=== PATIENT | male | born 1970 | race Hispanic/Latino ===

== ENCOUNTER → 2018-10-31 | Day surgery (SDC) | payer BC ==
[2018-10-28 15:30] LABS: BASOPHILS % 0.7 % (0.0-1.0); EOSINOPHILS # (AUTO) 0.1 (0.0-0.4); EOSINOPHILS % 1.3 % (0.0-6.0); HEMATOCRIT 43.2 % (38.2-49.6); HEMOGLOBIN 14.6 g/dL (14.0-18.0); LYMPHOCYTES # (AUTO) 2.6 (1.0-3.2); LYMPHOCYTES % 43.6 % (18.0-39.1); MEAN CORPUSCULAR HEMOGLOBIN 30.4 pg (28-32); MEAN CORPUSCULAR HGB CONC 33.8 g/dL (31-35); MONOCYTES # (AUTO) 0.5 (0.2-0.8); MONOCYTES % 8.4 % (4.4-11.3); NEUTROPHILS # (AUTO) 2.7 (2.1-6.9); NEUTROPHILS % 45.8 % (38.7-80.0); PLATELET COUNT 219 x10e3/uL (140-360); RED CELL DISTRIBUTION WIDTH 12.6 % (11.7-14.4)
[2018-10-28 15:47] LABS: BLOOD UREA NITROGEN 14 mg/dL (7-26); BUN/CREATININE RATIO 16 (6-25); CALCIUM 9.5 mg/dL (8.4-10.2); CARBON DIOXIDE 23 mmol/L (22-29); CHLORIDE 105 mmol/L (98-107); CREATININE, SERUM 0.86 mg/dL (0.72-1.25); EST GLOMERULAR FILTRATION RATE > 60 ML/MIN (60-); GLUCOSE 83 mg/dL (74-118); SODIUM 137 mmol/L (136-145)
[~2018-10-31] MED LIST: ACETAMINOPHEN 1000 MG/100 ML 100 ML IV ONE; ACETAMINOPHEN/CODEINE 300MG - 30MG TAB ONE; BUPIVACAINE 0.25%/EPI 30ML SDV INJ ONE; DEXAMETHASONE SOD PHOS INJ 4 MG/ML VIAL ONE; FENTANYL CITRATE/PF 100MCG/2 ML INJ ONE; FISH OIL 1,0001 EAC2; KETOROLAC TROMETHAMINE 30 MG/ML VIAL ONE; LIDOCAINE HCL (LTA) 4 ML SOLN ONE; LIDOCAINE HCL 2% LOCAL INJ 5 ML SDV VIAL INJ ONE; LISINOPRIL30 MG; MIDAZOLAM HCL 2 MG/2 ML VIAL ONE; ONDANSETRON HCL INJ 2MG/ML 2ML 2 MG/ML VIAL ONE; PRAVASTATIN SOD80 MG; PROPOFOL IV EMULSION 10 MG/ML 20 ML VIAL ONE; ROCURONIUM BROMIDE 10 MG/ML 5ML VIAL ONE; SEVOFLURANE INHAL SOLN 250 ML PEN BTL ONE; XYZAL5 MG; ZETIA10 MG PO
[2018-10-31 12:15] VITALS: BP 115/84
--- NOTE | 2018-10-31 12:38 | Operative Report ---
DATE OF PROCEDURE: 10/31/2018 SURGEON: Juan Lyons MD PREOPERATIVE DIAGNOSIS: Umbilical hernia. POSTOPERATIVE DIAGNOSIS: Umbilical hernia. PROCEDURE PERFORMED: Repair of umbilical hernia with omphalectomy, partial omentectomy, and placement of Ethicon Proceed ventral patch, small size. ANESTHESIA: General. ESTIMATED BLOOD LOSS: Minimal. DRAINS: None. COMPLICATIONS: None. INDICATION AND FINDINGS: A 48-year-old male, who has been complaining of increasing bulge and discomfort in the umbilical site for several months. INTERAOPERATIVE FINDINGS: The patient had an umbilical hernia with incarceration of omentum that was viable. The Ultrapro hernia system oval type was deployed in the intraabdominal location. Partial omentectomy was performed to be able to access the abdominal cavity. DESCRIPTION OF PROCEDURE: With the patient lying on the operative table in the supine position after administration of general anesthesia, he was prepped and draped for repair of umbilical hernia. An elliptical incision was drawn around the umbilicus and the dissection was carried down through skin, subcutaneous tissue, and then the hernia sac was identified. This was excised and contained omentum. Partial omentectomy was then performed using electrocautery of a small patch of omentum in order to allow free access into the abdominal cavity. After we did that, we then deployed the Proceed ventral patch mesh lying against the abdominal wall, taking care to prevent interposition of any tissue between the mesh and abdominal wall. The mesh was then secured to the local tissues using a series of interrupted 0-Ethibond sutures. The umbilical defect was loosely closed with 0-Ethibond also after we cut the straps. After we did that, we copiously irrigated the wound. Any bleeding points were cauterized. We infiltrated the operative field block with 0.25% Marcaine with epinephrine and then closed the wound using a combination of 0-Ethibond, which was also used to recreate the umbilical dimple and then 2-0 also for the soft tissues. The skin was closed using mattress sutures, interrupted silk sutures using 3-0 silk. Sterile pressure dressing was applied. The patient tolerated the procedure well, taken to recovery room in stable condition. The was informed of the intraoperative findings and preoperatively, the patient was in agreement and gave permission for an omphalectomy. MD ASHA Yepez/LATANYA /[id number]
== END | disposition home or self-care (01) ==
LOC: OR 07:08
PROVIDERS: ATTEND Surgery
DX: K43.9 Ventral hernia without obstruction or gangrene (principal); K42.0 Umbilical hernia with obstruction, without gangrene; F41.9 Anxiety disorder, unspecified; K21.9 Gastro-esophageal reflux disease without esophagitis; I10 Essential (primary) hypertension; Z01.810 Encounter for preprocedural cardiovascular examination; Z01.812 Encounter for preprocedural laboratory examination
CPT/HCPCS: 36415; 49587; 80048; 85025; 88302; 93005; C1781; J0131; J1100; J1885; J2001; J2250; J2405; J2704

== ENCOUNTER 2019-01-20 05:52 | Emergency (ER) | payer BC ==
[~2019-01-20] VITALS: Ht 172.7 cm; Wt 88.5 kg
[~2019-01-20 05:52] MED LIST changes: -ACETAMINOPHEN 1000 MG/100 ML 100 ML IV ONE; -ACETAMINOPHEN/CODEINE 300MG - 30MG TAB ONE; -BUPIVACAINE 0.25%/EPI 30ML SDV INJ ONE; -DEXAMETHASONE SOD PHOS INJ 4 MG/ML VIAL ONE; -FENTANYL CITRATE/PF 100MCG/2 ML INJ ONE; -KETOROLAC TROMETHAMINE 30 MG/ML VIAL ONE; -LIDOCAINE HCL (LTA) 4 ML SOLN ONE; -LIDOCAINE HCL 2% LOCAL INJ 5 ML SDV VIAL INJ ONE; -MIDAZOLAM HCL 2 MG/2 ML VIAL ONE; -ONDANSETRON HCL INJ 2MG/ML 2ML 2 MG/ML VIAL ONE; -PROPOFOL IV EMULSION 10 MG/ML 20 ML VIAL ONE; -ROCURONIUM BROMIDE 10 MG/ML 5ML VIAL ONE; -SEVOFLURANE INHAL SOLN 250 ML PEN BTL ONE
[2019-01-20 06:36] LABS: BASOPHILS # (AUTO) 0.1 (0.0-0.1); BASOPHILS % 0.9 % (0.0-1.0); EOSINOPHILS # (AUTO) 0.1 (0.0-0.4); EOSINOPHILS % 1.7 % (0.0-6.0); HEMOGLOBIN 14.8 g/dL (14.0-18.0); LYMPHOCYTES # (AUTO) 2.7 (1.0-3.2); LYMPHOCYTES % 42.7 % (18.0-39.1); MEAN CORPUSCULAR HEMOGLOBIN 30.6 pg (28-32); MEAN CORPUSCULAR HGB CONC 34.4 g/dL (31-35); MEAN CORPUSCULAR VOLUME 88.8 fL (81-99); MONOCYTES # (AUTO) 0.6 (0.2-0.8); NEUTROPHILS # (AUTO) 2.9 (2.1-6.9); NEUTROPHILS % 45.4 % (38.7-80.0); PLATELET COUNT 207 x10e3/uL (140-360); RED BLOOD COUNT 4.84 x10e6/uL (4.3-5.7); RED CELL DISTRIBUTION WIDTH 13.1 % (11.7-14.4)
[2019-01-20 06:51] LABS: ALANINE AMINOTRANSFERASE 38 IU/L (0-55); ALBUMIN 4.3 g/dL (3.5-5.0); ALBUMIN/GLOBULIN RATIO 1.5 (0.8-2.0); ALKALINE PHOSPHATASE 67 IU/L (40-150); ANION GAP 12.4 mmol/L (8-16); BLOOD UREA NITROGEN 15 mg/dL (7-26); BUN/CREATININE RATIO 16 (6-25); CALCIUM 9.5 mg/dL (8.4-10.2); CARBON DIOXIDE 25 mmol/L (22-29); CHLORIDE 104 mmol/L (98-107); CREATININE, SERUM 0.91 mg/dL (0.72-1.25); EST GLOMERULAR FILTRATION RATE > 60 ML/MIN (60-); GLUCOSE 123 mg/dL (74-118); POTASSIUM 3.4 mmol/L (3.5-5.1); SODIUM 138 mmol/L (136-145)
--- NOTE | 2019-01-20 07:44 | Diagnostic Imaging Report ---
Exam: Abdominal film Clinical History: Left lower quadrant and left flank pain Comparison: None. DISCUSSION: The bowel gas pattern shows no dilated, air-filled loops of bowel. A 4 mm calcification projects just superior to the lateral margin of the left L3 transverse process, in the expected region of the ureteropelvic junction. No additional abnormal calcification. No mass effect or organomegaly. Regional skeletal structures are intact. IMPRESSION: Suspected 4 mm left ureteropelvic junction calculus given clinical history of left flank pain. Nonobstructive bowel gas pattern. Signed by: Dr. Matthew Sofia M.D. on 01/20/2019 7:41 AM
[2019-01-20] MEDS ORDERED: KETOROLAC TROMETHAMINE 30 MG/ML VIAL IV STA (08:26)
[2019-01-20] MEDS ORDERED: SIMETHICONE 40 MG/0.6 ML BTL PO ONE ×2 (08:30→11:00)
[2019-01-20] MEDS ORDERED: SODIUM CHLORIDE 0.9% 1000ML 1,000 ML IV SCH (08:30)
[2019-01-20 08:50] LABS: BILIRUBIN,URINE NEGATIVE (NEGATIVE); CLARITY,URINE CLEAR (CLEAR); COLOR,URINE YELLOW (YELLOW); KETONES,URINE NEGATIVE (NEGATIVE); LEUKOCYTE ESTERASE ,URINE NEGATIVE (NEGATIVE); NITRITE,URINE NEGATIVE (NEGATIVE); PROTEIN,URINE DIPSTICK NEGATIVE (NEGATIVE); URINE UROBILINOGEN 0.2 mg/dL (0.2 - 1)
[2019-01-20 09:01] LABS: BACTERIA,URINE RARE /HPF; EPITHELIAL CELLS,URINE RARE /LPF; RBC,URINE >50 /HPF (0-5); WBC,URINE (MAN) 0-5 /HPF (0-5)
[2019-01-20] MEDS ORDERED: FLOMAX0.4 MG PO (09:16)
[2019-01-20] MEDS ORDERED: ULTRAM50 MG PO (09:16)
== END 2019-01-20 11:06 | disposition home or self-care (01) ==
LOC: ER 05:52
DX: R10.32 Left lower quadrant pain (principal); N20.1 Calculus of ureter
CPT/HCPCS: 36415; 74018; 80053; 81001; 85025; 93005; 99284; J1885; J7030

== ENCOUNTER → 2020-05-30 | Outpatient (CLI) | payer BC ==
[~2020-05-30] MED LIST changes: +FLOMAX0.4 MG PO; +ULTRAM50 MG PO
--- NOTE | 2020-05-30 13:20 | Diagnostic Imaging Report ---
Exam: Abdominal film Clinical History: Calculus of kidney. Left lower quadrant and left flank pain Comparison: 01/20/2019. DISCUSSION: The bowel gas pattern shows no dilated, air-filled loops of bowel. Moderate retained stool could be due to constipation. 3 mm calcification over the left lower kidney. Previously seen 4 mm calcification just superior to the lateral margin of the left L3 transverse process is no longer seen. No additional abnormal calcification. No mass effect or organomegaly. Regional skeletal structures are intact. IMPRESSION: 3 mm calcification over the left lower kidney. Previously seen 4 mm calcification just superior to the lateral margin of the left L3 transverse process is no longer seen. Moderate retained stool could be due to constipation. Signed by: Dr. James Damon M.D. on 05/30/2020 1:17 PM
== END ==
LOC: RAD 12:40
PROVIDERS: ATTEND Urology
DX: N20.0 Calculus of kidney (principal)
CPT/HCPCS: 74018